=== PATIENT | female | born 1960 | race Caucasian/White ===

== ENCOUNTER 2021-04-15 11:48 | Emergency (ER) | payer BC ==
[~2021-04-15] VITALS: Ht 160 cm; Wt 70.5 kg
[2021-04-15 12:15] LABS: BASO # 0.1 (0.0-0.2); BASO % 0.6 % (0.0-2.0); EOS # 0.2 (0.0-0.7); EOS % 1.7 % (0-4.0); GRAN # 6.8 (1.4-6.5); GRAN % 67.1 % (42.2-75.2); HEMOGLOBIN 11.1 g/dl (12.5-16.0); LYMPH # 2.4 (1.2-3.4); LYMPH % 23.9 % (20.0-51.0); MEAN CELL VOLUME 90 fl (80.0-100.0); MEAN CORPUSCULAR HEMOGLOBIN 31 pg (27.0-31.0); MEAN CORPUSCULAR HGB CONC 34 g/dl (33.0-37.0); MEAN PLATELET VOLUME 9.3 fl (7.4-10.4); MONO # 0.7 (0.1-0.6); MONO % 6.4 % (1.7-9.3); PLATELET COUNT 389 K/mm3 (130-400); RED BLOOD COUNT 3.62 M/mm3 (4.10-5.30)
[2021-04-15 12:18] LABS: HEMATOCRIT 32.5 % (37.0-47.0)
[2021-04-15 12:24] LABS: ALANINE AMINOTRANSFERASE 17 U/L (4-34); ALBUMIN 4.3 gm/dL (3.5-5.0); ALKALINE PHOSPHATASE 65 U/L (50-136); ANION GAP 8 mmol/L (7-16); AST,SGOT 21 U/L (15-37); BILIRUBIN,TOTAL 0.3 mg/dL (0.0-1.0); BLOOD UREA NITROGEN 19 mg/dL (7-17); CALCIUM 9.3 mg/dL (8.4-10.2); CARBON DIOXIDE 21 mmol/L (22-30); CHLORIDE 98 mmol/L (98-107); CREATININE, serum 0.78 (0.52-1.25); GLUCOSE 143 mg/dL (74-106); POTASSIUM 3.1 mmol/L (3.4-5.0); SODIUM 127 mmol/L (137-145); TOTAL PROTEIN 7.6 gm/dL (6.4-8.2)
[2021-04-15 12:38] LABS: TROPONIN-I < 0.012 ng/mL (0.000-0.035)
[2021-04-15 13:59] VITALS: TEMP 97.5
[2021-04-15 15:35] LABS: CALCIUM 8.5 mg/dL (8.4-10.2); CREATININE, serum 0.68 (0.52-1.25); POTASSIUM 3.2 mmol/L (3.4-5.0)
[2021-04-15 17:37] VITALS: BP 106/70; PULSE 75
== END 2021-04-15 17:39 | disposition home or self-care (01) ==
LOC: COL.ER 11:48
PROVIDERS: Emergency Medicine
DX: E87.1 Hypo-osmolality and hyponatremia (principal); I10 Essential (primary) hypertension; J45.909 Unspecified asthma, uncomplicated; F17.210 Nicotine dependence, cigarettes, uncomplicated
CPT/HCPCS: J2405; J7030

== ENCOUNTER 2022-04-16 10:44 | Emergency (ER) | payer BC ==
[~2022-04-16] VITALS: Ht 160 cm; Wt 78.6 kg
[2022-04-16 11:03] VITALS: TEMP 97.6
[2022-04-16 11:43] LABS: BASO # 0.1 K/mm3 (0.0-0.2); BASO % 0.8 % (0.0-2.0); EOS # 0.2 K/mm3 (0.0-0.7); EOS % 2.7 % (0.0-4.0); GRAN % 55.4 % (42.2-75.2); HEMOGLOBIN 10.3 g/dl (12.5-16.0); LYMPH # 2.1 K/mm3 (1.2-3.4); LYMPH % 28.7 % (20.0-51.0); MEAN CELL VOLUME 89 fl (80.0-100.0); MEAN CORPUSCULAR HEMOGLOBIN 31 pg (27-31); MEAN CORPUSCULAR HGB CONC 35 g/dl (33.0-37.0); MEAN PLATELET VOLUME 8.8 fl (7.4-10.4); MONO # 0.9 K/mm3 (0.1-0.6); MONO % 12.1 % (1.7-9.3); PLATELET COUNT 487 K/mm3 (130-400); RED BLOOD COUNT 3.32 M/mm3 (4.10-5.30); REDCELL DISTRIBUTION WIDTH-CV 13.4 % (11.5-14.5)
[2022-04-16 11:44] LABS: HEMATOCRIT 29.4 % (37.0-47.0)
[2022-04-16 12:11] LABS: PARTIAL THROMBOPLASTIN TIME 29.3 SECONDS (26.0-37.0); PROTHROMBIN TIME 11.5 SECONDS (9.7-12.8)
[2022-04-16 12:20] LABS: D-DIMER < 200.00 ng/mLDDu (200-230)
[2022-04-16 12:51] LABS: ALANINE AMINOTRANSFERASE 16 U/L (0-55); ALBUMIN 3.5 gm/dL (3.4-4.8); ALKALINE PHOSPHATASE 69 U/L (40-150); ANION GAP 14 mmol/L (7-16); AST,SGOT 13 U/L (5-34); BILIRUBIN,TOTAL 0.5 mg/dL (0.2-1.2); BLOOD UREA NITROGEN 22 mg/dL (10-20); CALCIUM 9.1 mg/dL (8.4-10.2); CARBON DIOXIDE 22 mmol/L (23-31); CHLORIDE 99 mmol/L (98-107); CREATININE, serum 0.77 mg/dL (0.57-1.11); GLUCOSE 92 mg/dL (70-99); POTASSIUM 3.4 mmol/L (3.5-4.5); SODIUM 135 mmol/L (136-145); TOTAL PROTEIN 6.8 gm/dL (6.2-8.1)
[2022-04-16 12:58] LABS: TROPONIN-I < 0.010 ng/mL (0.00-0.033)
[2022-04-16] MEDS ORDERED: AMOXICILLIN875 MG PO (13:15)
[2022-04-16 13:41] LABS: COLLECTION METHOD CLEAN CATCH
[2022-04-16 13:55] LABS: MUCOUS Present (NOT PRESENT); PH 5 (5-8); SQUAMOUS EPITHELIAL None Seen /hpf (0-10); URINE APPEARANCE Clear (CLEAR/HAZY); URINE BACTERIA Rare /hpf (NONE SEEN); URINE BILIRUBIN Negative (NEGATIVE); URINE BLOOD 2+ (NEGATIVE); URINE COLOR Straw (YELLOW); URINE GLUCOSE Negative (NEGATIVE); URINE KETONE Negative (NEGATIVE); URINE LEUKOCYTE ESTERASE Negative (NEGATIVE); URINE NITRATE Negative (NEGATIVE); URINE PROTEIN(semi-quant) Negative (NEGATIVE); URINE UROBILINOGEN Negative (NEGATIVE)
[2022-04-16 14:14] LABS: TRICYCLIC ANTIDEPRESS URINE NEGATIVE
[2022-04-16 14:25] VITALS: BP 97/59; PULSE 62
== END 2022-04-16 14:30 | disposition home or self-care (01) ==
LOC: COL.ER 10:44
PROVIDERS: Emergency Medicine; Physician Assistant
DX: R07.89 Other chest pain (principal); R06.02 Shortness of breath; J32.9 Chronic sinusitis, unspecified; F17.210 Nicotine dependence, cigarettes, uncomplicated; Z88.1 Allergy status to other antibiotic agents; Z86.16 Personal history of COVID-19
CPT/HCPCS: J1885; J7030